=== PATIENT | male | born 1955 | race African-American/Black ===

== ENCOUNTER 2016-12-26 11:52 | Emergency (ER) | payer MEDICARE, OTHER ==
[~2016-12-26] VITALS: Ht 177.8 cm; Wt 68.0 kg
[~2016-12-26 11:52] MED LIST: CEPH500 PO; HYDR-3965 PO; IBUP-2070 PO; IPRA4AER IH; SULF-168 PO
[2016-12-26 13:02] LABS: BASOPHILS % (AUTO) 0.5 % (0.0-2.0); EOSINOPHILS % (AUTO) 0.7 % (1.0-6.0); HEMATOCRIT 43.9 % (41-53); HEMOGLOBIN 14.2 g/dL (13.5-17.5); LYMPHOCYTES # (AUTO) 1.4 K/uL (1.0-4.8); LYMPHOCYTES % (AUTO) 33.2 % (22.0-44.0); MEAN CORPUSCULAR HEMOGLOBIN 28.5 pg (26.0-34.0); MEAN CORPUSCULAR HGB CONC 32.4 G/dL (31.0-37.0); MEAN CORPUSCULAR VOLUME 88 fL (80-100); MONOCYTES # (AUTO) 0.8 K/uL (0.1-1.0); MONOCYTES % (AUTO) 19.7 % (2.0-9.0); NEUTROPHILS % (AUTO) 45.9 % (40.0-70.0); PLATELET COUNT (AUTO) 246 K/uL (150-450); RED BLOOD CELL COUNT(AUTO) 4.99 MIL/uL (4.50-5.90); RED CELL DISTRIBUTION WIDTH 13.9 % (11.5-14.5); WHITE BLOOD COUNT (AUTO) 4.3 K/uL (4.5-11.0)
[2016-12-26 13:10] LABS: ANION GAP 7 mmol/L (8-16); CALCIUM, TOTAL 8.8 mg/dL (8.8-10.5); CARBON DIOXIDE 32 mmol/L (22-29); CHLORIDE 100 mmol/L (98-107); GLOMERULAR FILTR. RATE CALC > 60 mL/min (>60); POTASSIUM 4.5 mmol/L (3.5-5.1); SODIUM SERUM 139 mmol/L (136-145); UREA NITROGEN, BLOOD 15 mg/dL (7-18)
[2016-12-26 13:16] LABS: ALANINE AMINOTRANSFERASE 33 U/L (12-78); ALBUMIN 4.1 g/dL (3.4-5.0); ASPARTATE AMINOTRANSFERASE 47 U/L (15-37); TOTAL PROTEIN, SERUM 8.1 g/dL (6.4-8.2)
[2016-12-26] MEDS ORDERED: SODIUM CHLORIDE 0.9% 1,000 ML IV ONE (15:30)
[2016-12-26] MEDS ORDERED: ONDANSETRON HCL 4 MG/2 ML VIAL IVP ONE (15:30)
[2016-12-26 15:33] LABS: APPEARANCE,URINE CLEAR (CLEAR)
[2016-12-26 15:34] LABS: ADD UA MICROSCOPIC YES; GLUCOSE, URINE (UA) NEGATIVE (NEGATIVE); KETONES,URINE NEGATIVE (NEGATIVE); LEUKOCYTE ESTERASE ,URINE NEGATIVE (NEGATIVE); OCCULT BLOOD,URINE TRACE (NEGATIVE); PH,URINE 6.5 (5.0-8.0); PROTEIN,URINE TRACE (NEGATIVE)
[2016-12-26 16:02] LABS: SQUAMOUS EPITHELIAL CELL,UR Few /LPF (None Seen)
[2016-12-26 16:03] LABS: RBC,URINE 0-2 /HPF (0-2); WBC,URINE 0-2 /HPF (0-5)
[2016-12-26 16:45] VITALS: BP 151/106
== END 2016-12-26 17:29 | disposition home or self-care (01) ==
LOC: EMS 11:55
DX: J44.9 Chronic obstructive pulmonary disease, unspecified (principal); R19.7 Diarrhea, unspecified
CPT/HCPCS: 36415; 80053; 81001; 83690; 85025; 96361; 96374; 99285; J2405; J7030; 99284

== ENCOUNTER 2019-03-27 09:58 | Inpatient (IN) | payer MEDICARE, MEDICAID ==
[~2019-03-27] VITALS: Ht 180.3 cm; Wt 68.5 kg
[~2019-03-27 09:58] MED LIST changes: -CEPH500 PO; -SULF-168 PO
[2019-03-27] MEDS ORDERED: ALBU90AE IH (10:08)
[2019-03-27] MEDS ORDERED: MethylPREDNISolone SOD SUCC 125 MG/2 ML VIAL IVP ONE (10:15)
[2019-03-27] MEDS ORDERED: MAGNESIUM SULFATE 2 GM/WATER 50 ML IV ONE (10:15)
[2019-03-27] MEDS ORDERED: ALBUTEROL SULFATE 2.5 MG/0.5 ML NEB SOLUTION NEB ONE (10:15)
[2019-03-27] MEDS ORDERED: IPRATROPIUM BROMIDE 0.5 MG/2.5 ML NEB SOLUTION NEB ONE ×2 (10:15→11:30)
[2019-03-27 10:29] LABS: BASOPHILS % (AUTO) 0.2 % (0.0-2.0); EOSINOPHILS % (AUTO) 0.6 % (1.0-6.0); HEMATOCRIT 40.8 % (41-53); HEMOGLOBIN 12.9 g/dL (13.5-17.5); LYMPHOCYTES % (AUTO) 8.4 % (22.0-44.0); MEAN CORPUSCULAR HEMOGLOBIN 26.3 pg (26.0-34.0); MEAN CORPUSCULAR HGB CONC 31.7 G/dL (31.0-37.0); MEAN CORPUSCULAR VOLUME 83 fL (80-100); MONOCYTES % (AUTO) 17.3 % (2.0-9.0); NEUTROPHILS # (AUTO) 8.5 K/uL (1.8-7.7); NEUTROPHILS % (AUTO) 73.5 % (40.0-70.0); PLATELET COUNT (AUTO) 285 K/uL (150-450); RED BLOOD CELL COUNT(AUTO) 4.92 MIL/uL (4.50-5.90); RED CELL DISTRIBUTION WIDTH 14.5 % (11.5-14.5)
[2019-03-27 10:41] LABS: ANION GAP 8 mmol/L (8-16); CALCIUM, TOTAL 9.1 mg/dL (8.8-10.5); CARBON DIOXIDE 30 mmol/L (22-29); CHLORIDE 97 mmol/L (98-107); CREATININE 0.96 mg/dL (0.60-1.30); GLOMERULAR FILTR. RATE CALC > 60 mL/min (>60); GLUCOSE,RANDOM 118 mg/dL (70-110); POTASSIUM 4.2 mmol/L (3.5-5.1); SODIUM SERUM 135 mmol/L (136-145); UREA NITROGEN, BLOOD 8 mg/dL (7-18)
[2019-03-27] MEDS ORDERED: LORazepam 2 MG/ML VIAL ONE (10:48)
[2019-03-27 11:00] LABS: ABG BASE EXCESS 2.6 mmol/L (-2.0-3.0); ABG CARBOXYHEMOGLOBIN 1.1 % (0.0-1.5); ABG HCO3 24.5 mmol/L (22.0-26.0); ABG METHEMOGLOBIN 0.3 % (0.0-1.5); ABG OXYGEN CONTENT 18.8 mL/dL (15.0-23.0); ABG OXYGEN SATURATION 98.7 % (95.0-98.0); ABG OXYHEMOGLOBIN 97.3 % (94.0-100.0); ABG PH 7.171 (7.35-7.450); ABG TOTAL HEMOGLOBIN 13.5 G/dL (12.0-18.0); PO2, ARTERIAL BG 173.3 mmHg (79.0-87.0); SOURCE, BLOOD GAS ARTERIAL; TEMPERATURE, FAHRENHEIT, BG 97.3 FAHREN (96.0-98.6)
[2019-03-27] MEDS ORDERED: LORazepam 2 MG/ML VIAL IVP ONE (11:00)
[2019-03-27 11:01] LABS: ABG PCO2 87 mmHg (35-45); O2 DEVICE,BLOOD GAS BIPAP (ROOM AIR); SITE, BLOOD GAS LFT RADIAL
[2019-03-27 11:02] LABS: B-TYPE NATRIURETIC PEPTIDE 45 pg/mL (0-100)
[2019-03-27 11:11] LABS: ALANINE AMINOTRANSFERASE 34 U/L (12-78); ALBUMIN 4.1 g/dL (3.4-5.0); ALKALINE PHOSPHATASE 110 U/L (46-116); ASPARTATE AMINOTRANSFERASE 46 U/L (15-37); BILIRUBIN,TOTAL 1.2 mg/dL (0.1-1.0); CREATINE KINASE, TOTAL ONLY 451 U/L (39-308); TOTAL PROTEIN, SERUM 8.9 g/dL (6.4-8.2)
[2019-03-27] MEDS ORDERED: LEVALBUTEROL HCL 1.25 MG/0.5 ML NEB SOLUTION NEB ONE ×2 (11:30)
[2019-03-27] MEDS ORDERED: ETOMIDATE 2 MG/ML 10 ML VIAL IVP ONE (12:00)
[2019-03-27 12:30] LABS: ABG BASE EXCESS 2.5 mmol/L (-2.0-3.0); ABG CARBOXYHEMOGLOBIN 0.7 % (0.0-1.5); ABG HCO3 23.9 mmol/L (22.0-26.0); ABG METHEMOGLOBIN 0.3 % (0.0-1.5); ABG OXYGEN CONTENT 18.6 mL/dL (15.0-23.0); ABG OXYGEN SATURATION 99.4 % (95.0-98.0); ABG OXYHEMOGLOBIN 98.4 % (94.0-100.0); ABG PCO2 122 mmHg (35-45); ABG PH 7.051 (7.35-7.450); ABG TOTAL HEMOGLOBIN 12.9 G/dL (12.0-18.0); O2 DEVICE,BLOOD GAS BIPAP (ROOM AIR); PO2, ARTERIAL BG 313.5 mmHg (79.0-87.0); SITE, BLOOD GAS RT RADIAL; SOURCE, BLOOD GAS ARTERIAL; TEMPERATURE, FAHRENHEIT, BG 98.6 FAHREN (96.0-98.6)
[2019-03-27] MEDS ORDERED: ETOMIDATE 2 MG/ML 10 ML VIAL ONE (12:34)
[2019-03-27] MEDS ORDERED: PROPOFOL 1000 MG/ISO-OSM 100 ML IV ONE (12:34)
[2019-03-27] MEDS ORDERED: RAPID SEQUENCE KIT [RSI] 1 EACH KIT ONE (12:34)
[2019-03-27] MEDS ORDERED: ROCURONIUM BROMIDE 10 MG/ML 5 ML VIAL ONE (12:35)
[2019-03-27] MEDS ORDERED: PROPOFOL 1000 MG/ISO-OSM 100 ML IV PRN (12:47)
[2019-03-27] MEDS ORDERED: LEVOFLOXACIN 750 MG/D5% WATER 150 ML IV ONE (13:00)
[2019-03-27] MEDS ORDERED: ONDANSETRON HCL 4 MG/2 ML VIAL IVP PRN (13:00)
[2019-03-27] MEDS ORDERED: IPRATROPIUM BROMIDE 0.5 MG/2.5 ML NEB SOLUTION NEB PRN (13:00)
[2019-03-27] MEDS ORDERED: BISACODYL 10 MG RECTAL RECTAL SUPPOSITORY PR PRN (13:00)
[2019-03-27] MEDS ORDERED: ALBUTEROL SULFATE 2.5 MG/0.5 ML NEB SOLUTION NEB PRN (13:00)
[2019-03-27] MEDS ORDERED: MAGNESIUM HYDROXIDE SUSPENSION 30 ML UDCUP PO PRN (13:00)
[2019-03-27] MEDS: HEPARIN SODIUM,PORCINE 5,000 UNITS/ML VIAL SQ SCH ×2 (13:36→21:08)
[2019-03-27] MEDS: SODIUM CHLORIDE 0.9% 1,000 ML IV SCH (13:37)
[2019-03-27] MEDS: ALBUTEROL SULFATE 2.5 MG/0.5 ML NEB SOLUTION NEB SCH ×2 (14:00→19:48)
[2019-03-27] MEDS: IPRATROPIUM BROMIDE 0.5 MG/2.5 ML NEB SOLUTION NEB SCH ×2 (14:00→19:49)
[2019-03-27 14:18] LABS: ABG A-A DIFF O2 120.1 mmHg (10-20.0); ABG BASE EXCESS -4.6 mmol/L (-2.0-3.0); ABG CARBOXYHEMOGLOBIN 0.8 % (0.0-1.5); ABG HCO3 20.8 mmol/L (22.0-26.0); ABG METHEMOGLOBIN 0.2 % (0.0-1.5); ABG OXYGEN CONTENT 17.9 mL/dL (15.0-23.0); ABG OXYGEN SATURATION 99.4 % (95.0-98.0); ABG OXYHEMOGLOBIN 98.4 % (94.0-100.0); ABG PCO2 44 mmHg (35-45); ABG PH 7.308 (7.35-7.450); ABG TOTAL HEMOGLOBIN 12.5 G/dL (12.0-18.0); SOURCE, BLOOD GAS ARTERIAL; TEMPERATURE, FAHRENHEIT, BG 98.6 FAHREN (96.0-98.6)
[2019-03-27 14:19] LABS: O2 DEVICE,BLOOD GAS VENTILATOR (ROOM AIR); PEEP,BG 5 cm H2O; SITE, BLOOD GAS RT RADIAL; VT, ABG 500 ml
[2019-03-27 16:00] VITALS: BP 117/81
[2019-03-27] MEDS: MethylPREDNISolone SOD SUCC 125 MG/2 ML VIAL IVP SCH ×2 (17:48→23:51)
[2019-03-27] MEDS: PROPOFOL 1000 MG/ISO-OSM 100 ML IV PRN ×2 (17:49→23:51)
[2019-03-27 18:00] VITALS: BP 125/89
[2019-03-27] MEDS: ACETAMINOPHEN 325 MG TABLET PO PRN (19:45)
[2019-03-27 20:00] VITALS: BP 119/82
[2019-03-27] MEDS ORDERED: PNEUMOCOCCAL VACCINE POLYVALENT 0.5 ML VIAL [PPSV23] IM ONE (20:45)
[2019-03-27 22:00] VITALS: BP 103/68
[2019-03-28] VITALS (11 sets, daily range): BP systolic 96–123; BP diastolic 62–85
[2019-03-28] MEDS: IPRATROPIUM BROMIDE 0.5 MG/2.5 ML NEB SOLUTION NEB SCH ×4 (01:48→19:31)
[2019-03-28] MEDS: ALBUTEROL SULFATE 2.5 MG/0.5 ML NEB SOLUTION NEB SCH ×4 (01:48→19:31)
[2019-03-28] MEDS: SODIUM CHLORIDE 0.9% 1,000 ML IV SCH ×2 (04:14→17:51)
[2019-03-28] MEDS: PROPOFOL 1000 MG/ISO-OSM 100 ML IV PRN ×4 (04:16→17:51)
[2019-03-28 04:52] LABS: BASOPHILS % (AUTO) 0.1 % (0.0-2.0); EOSINOPHILS % (AUTO) 0 % (1.0-6.0); HEMATOCRIT 34.3 % (41-53); HEMOGLOBIN 10.7 g/dL (13.5-17.5); LYMPHOCYTES # (AUTO) 0.7 K/uL (1.0-4.8); LYMPHOCYTES % (AUTO) 7.2 % (22.0-44.0); MEAN CORPUSCULAR HEMOGLOBIN 26.2 pg (26.0-34.0); MEAN CORPUSCULAR HGB CONC 31.1 G/dL (31.0-37.0); MEAN CORPUSCULAR VOLUME 84 fL (80-100); MONOCYTES # (AUTO) 0.6 K/uL (0.1-1.0); MONOCYTES % (AUTO) 6.8 % (2.0-9.0); NEUTROPHILS # (AUTO) 8.1 K/uL (1.8-7.7); PLATELET COUNT (AUTO) 239 K/uL (150-450); RED BLOOD CELL COUNT(AUTO) 4.08 MIL/uL (4.50-5.90); RED CELL DISTRIBUTION WIDTH 14.3 % (11.5-14.5)
[2019-03-28 05:05] LABS: NEUTROPHILS % (AUTO) 85.9 % (40.0-70.0)
[2019-03-28 05:10] LABS: ALANINE AMINOTRANSFERASE 22 U/L (12-78); ALBUMIN 2.7 g/dL (3.4-5.0); ALKALINE PHOSPHATASE 74 U/L (46-116); ANION GAP 3 mmol/L (8-16); ASPARTATE AMINOTRANSFERASE 29 U/L (15-37); BILIRUBIN,TOTAL 0.7 mg/dL (0.1-1.0); CALCIUM, TOTAL 8.2 mg/dL (8.8-10.5); CARBON DIOXIDE 32 mmol/L (22-29); CHLORIDE 102 mmol/L (98-107); CREATININE 0.89 mg/dL (0.60-1.30); GLOMERULAR FILTR. RATE CALC > 60 mL/min (>60); GLUCOSE,RANDOM 139 mg/dL (70-110); POTASSIUM 4.7 mmol/L (3.5-5.1); SODIUM SERUM 137 mmol/L (136-145); TOTAL PROTEIN, SERUM 6.9 g/dL (6.4-8.2); UREA NITROGEN, BLOOD 12 mg/dL (7-18)
[2019-03-28] MEDS: MethylPREDNISolone SOD SUCC 125 MG/2 ML VIAL IVP SCH ×4 (05:36→23:42)
[2019-03-28] MEDS: ACETAMINOPHEN 325 MG TABLET PO PRN (07:40)
[2019-03-28] MEDS: HEPARIN SODIUM,PORCINE 5,000 UNITS/ML VIAL SQ SCH ×2 (07:41→20:32)
[2019-03-28] MEDS: PANTOPRAZOLE SODIUM 40 MG/VIAL IVP SCH (07:41)
[2019-03-28] MEDS: AZITHROMYCIN 500 MG/NS 250 ML IV SCH (09:15)
[2019-03-28 09:25] LABS: AMPHET/METH SCREEN,URINE POSITIVE (NEGATIVE); BARBITURATE SCREEN, URINE NEGATIVE (NEGATIVE); BENZODIAZEPINES SCREEN,URINE NEGATIVE (NEGATIVE); CANNABINOID SCREEN,URINE POSITIVE (NEGATIVE); COCAINE SCREEN,URINE NEGATIVE (NEGATIVE); METHADONE SCREEN, URINE NEGATIVE (NEGATIVE); OPIATE SCREEN,URINE NEGATIVE (NEGATIVE)
[2019-03-28 09:29] LABS: PHENCYCLIDINE SCREEN,URINE NEGATIVE (NEGATIVE)
[2019-03-28 09:35] LABS: APPEARANCE,URINE CLOUDY (CLEAR); BILIRUBIN,URINE NEGATIVE (NEGATIVE); GLUCOSE, URINE (UA) NEGATIVE (NEGATIVE); KETONES,URINE 15 mg/dL (NEGATIVE); LEUKOCYTE ESTERASE ,URINE NEGATIVE (NEGATIVE); NITRATE,URINE NEGATIVE (NEGATIVE); OCCULT BLOOD,URINE SMALL (NEGATIVE); PROTEIN,URINE NEGATIVE (NEGATIVE)
[2019-03-28 10:07] LABS: BACTERIA,URINE None Seen /HPF (None Seen); RBC,URINE 0-2 /HPF (0-2); SQUAMOUS EPITHELIAL CELL,UR Few /LPF (None Seen); URIC ACID CRYSTALS,URINE Few /LPF (None Seen); WBC,URINE None Seen /HPF (0-5)
[2019-03-28] MEDS: FentaNYL CITRATE PF 500 MCG in DEXTROSE 5%-WATER 90 ML IV PRN ×2 (10:58→19:00)
[2019-03-28 14:46] LABS: ABG A-A DIFF O2 115.4 mmHg (10-20.0); ABG BASE EXCESS 2.8 mmol/L (-2.0-3.0); ABG CARBOXYHEMOGLOBIN 0.1 % (0.0-1.5); ABG HCO3 26.5 mmol/L (22.0-26.0); ABG METHEMOGLOBIN 0.3 % (0.0-1.5); ABG OXYGEN CONTENT 15.6 mL/dL (15.0-23.0); ABG OXYGEN SATURATION 98.3 % (95.0-98.0); ABG OXYHEMOGLOBIN 97.9 % (94.0-100.0); ABG PCO2 48 mmHg (35-45); ABG PH 7.383 (7.35-7.450); ABG TOTAL HEMOGLOBIN 11.2 G/dL (12.0-18.0); O2 DEVICE,BLOOD GAS VENTILATOR (ROOM AIR); PEEP,BG 5 cm H2O; SITE, BLOOD GAS RT RADIAL; SOURCE, BLOOD GAS ARTERIAL; TEMPERATURE, FAHRENHEIT, BG 98.3 FAHREN (96.0-98.6); VT, ABG 500 ml
[2019-03-29] VITALS (10 sets, daily range): BP systolic 98–124; BP diastolic 68–82
[2019-03-29] MEDS: PROPOFOL 1000 MG/ISO-OSM 100 ML IV PRN ×4 (00:35→16:50)
[2019-03-29] MEDS: IPRATROPIUM BROMIDE 0.5 MG/2.5 ML NEB SOLUTION NEB SCH ×4 (02:33→19:31)
[2019-03-29] MEDS: ALBUTEROL SULFATE 2.5 MG/0.5 ML NEB SOLUTION NEB SCH ×4 (02:33→19:30)
[2019-03-29 05:00] LABS: BASOPHILS % (AUTO) 0.3 % (0.0-2.0); EOSINOPHILS % (AUTO) 0 % (1.0-6.0); HEMATOCRIT 31.5 % (41-53); HEMOGLOBIN 9.9 g/dL (13.5-17.5); LYMPHOCYTES # (AUTO) 0.5 K/uL (1.0-4.8); LYMPHOCYTES % (AUTO) 4.1 % (22.0-44.0); MEAN CORPUSCULAR HEMOGLOBIN 26.4 pg (26.0-34.0); MEAN CORPUSCULAR HGB CONC 31.5 G/dL (31.0-37.0); MEAN CORPUSCULAR VOLUME 84 fL (80-100); MONOCYTES # (AUTO) 0.9 K/uL (0.1-1.0); MONOCYTES % (AUTO) 8.2 % (2.0-9.0); NEUTROPHILS # (AUTO) 10.1 K/uL (1.8-7.7); PLATELET COUNT (AUTO) 248 K/uL (150-450); RED BLOOD CELL COUNT(AUTO) 3.76 MIL/uL (4.50-5.90); RED CELL DISTRIBUTION WIDTH 14.4 % (11.5-14.5)
[2019-03-29] MEDS: FentaNYL CITRATE PF 500 MCG in DEXTROSE 5%-WATER 90 ML IV PRN ×2 (05:01→17:23)
[2019-03-29] MEDS: MethylPREDNISolone SOD SUCC 125 MG/2 ML VIAL IVP SCH ×3 (05:17→17:32)
[2019-03-29 05:21] LABS: NEUTROPHILS % (AUTO) 87.4 % (40.0-70.0)
[2019-03-29 05:26] LABS: ALANINE AMINOTRANSFERASE 20 U/L (12-78); ALBUMIN 2.2 g/dL (3.4-5.0); ALKALINE PHOSPHATASE 56 U/L (46-116); ANION GAP 7 mmol/L (8-16); ASPARTATE AMINOTRANSFERASE 31 U/L (15-37); BILIRUBIN,TOTAL 0.4 mg/dL (0.1-1.0); CALCIUM, TOTAL 7.9 mg/dL (8.8-10.5); CARBON DIOXIDE 29 mmol/L (22-29); CHLORIDE 103 mmol/L (98-107); GLOMERULAR FILTR. RATE CALC > 60 mL/min (>60); GLUCOSE,RANDOM 143 mg/dL (70-110); PHOSPHORUS 2.8 mg/dL (2.5-4.9); POTASSIUM 4.7 mmol/L (3.5-5.1); SODIUM SERUM 139 mmol/L (136-145); TOTAL PROTEIN, SERUM 5.9 g/dL (6.4-8.2)
[2019-03-29 05:36] LABS: UREA NITROGEN, BLOOD 18 mg/dL (7-18)
[2019-03-29] MEDS: SODIUM CHLORIDE 0.9% 1,000 ML IV SCH ×2 (08:03→22:00)
[2019-03-29] MEDS: HEPARIN SODIUM,PORCINE 5,000 UNITS/ML VIAL SQ SCH ×2 (08:13→20:43)
[2019-03-29] MEDS: PANTOPRAZOLE SODIUM 40 MG/VIAL IVP SCH (08:13)
[2019-03-29] MEDS: AZITHROMYCIN 500 MG/NS 250 ML IV SCH (08:14)
[2019-03-29] MEDS: HALOPERIDOL LACTATE 5 MG/ML VIAL IVP PRN ×2 (09:31→23:57)
[2019-03-29] MEDS ORDERED: HALOPERIDOL LACTATE 5 MG/ML VIAL IVP ONE (11:30)
[2019-03-29] MEDS ORDERED: SODIUM CHLORIDE 0.9% 250 ML IV ONE (19:17)
[2019-03-30] VITALS (7 sets, daily range): BP systolic 97–126; BP diastolic 66–78
[2019-03-30] MEDS: MethylPREDNISolone SOD SUCC 125 MG/2 ML VIAL IVP SCH ×4 (00:03→18:28)
[2019-03-30] MEDS: PROPOFOL 1000 MG/ISO-OSM 100 ML IV PRN ×5 (00:11→22:37)
[2019-03-30] MEDS: IPRATROPIUM BROMIDE 0.5 MG/2.5 ML NEB SOLUTION NEB SCH ×4 (01:25→20:15)
[2019-03-30] MEDS: ALBUTEROL SULFATE 2.5 MG/0.5 ML NEB SOLUTION NEB SCH ×4 (01:26→20:15)
[2019-03-30] MEDS: FentaNYL CITRATE PF 500 MCG in DEXTROSE 5%-WATER 90 ML IV PRN ×2 (05:39→18:17)
[2019-03-30] MEDS: HALOPERIDOL LACTATE 5 MG/ML VIAL IVP PRN ×2 (06:06→13:31)
[2019-03-30] MEDS: AZITHROMYCIN 500 MG/NS 250 ML IV SCH (08:38)
[2019-03-30] MEDS: HEPARIN SODIUM,PORCINE 5,000 UNITS/ML VIAL SQ SCH ×2 (08:39→21:22)
[2019-03-30] MEDS: PANTOPRAZOLE SODIUM 40 MG/VIAL IVP SCH (09:23)
[2019-03-30 13:06] LABS: LEGIONELLA PNEUMO AG URINE Negative (Negative); ORGANISM ID Not indicated.; S PNEUMO SOURCE Urine; STREP PNEUMONIAE AG URINE Negative (Negative); STREP.PNEUMO BODY FLUID CULT. Not Indicated
[2019-03-30] MEDS: SODIUM CHLORIDE 0.9% 1,000 ML IV SCH (13:29)
[2019-03-31] VITALS (8 sets, daily range): BP systolic 112–125; BP diastolic 72–85
[2019-03-31] MEDS: MethylPREDNISolone SOD SUCC 125 MG/2 ML VIAL IVP SCH ×5 (00:03→23:38)
[2019-03-31] MEDS: SODIUM CHLORIDE 0.9% 1,000 ML IV SCH (01:31)
[2019-03-31] MEDS: IPRATROPIUM BROMIDE 0.5 MG/2.5 ML NEB SOLUTION NEB SCH ×4 (02:06→20:11)
[2019-03-31] MEDS: ALBUTEROL SULFATE 2.5 MG/0.5 ML NEB SOLUTION NEB SCH ×4 (02:06→20:11)
[2019-03-31] MEDS: PROPOFOL 1000 MG/ISO-OSM 100 ML IV PRN ×4 (02:55→22:27)
[2019-03-31] MEDS: FentaNYL CITRATE PF 500 MCG in DEXTROSE 5%-WATER 90 ML IV PRN ×2 (02:55→14:35)
[2019-03-31] MEDS: HEPARIN SODIUM,PORCINE 5,000 UNITS/ML VIAL SQ SCH ×2 (08:25→20:14)
[2019-03-31] MEDS: AZITHROMYCIN 500 MG/NS 250 ML IV SCH (08:28)
[2019-03-31] MEDS: PANTOPRAZOLE SODIUM 40 MG/VIAL IVP SCH (08:31)
[2019-03-31] MEDS: HALOPERIDOL LACTATE 5 MG/ML VIAL IVP PRN ×2 (11:00→20:27)
[2019-04-01] VITALS: BP 118/78
[2019-04-01] MEDS: DOCUSATE SODIUM 100 MG CAPSULE PO PRN (01:23)
[2019-04-01] MEDS ORDERED: SODIUM CHLORIDE 0.9% 250 ML IV ONE ×2 (01:27→23:51)
[2019-04-01] MEDS: PROPOFOL 1000 MG/ISO-OSM 100 ML IV PRN ×2 (02:09→06:38)
[2019-04-01] MEDS: IPRATROPIUM BROMIDE 0.5 MG/2.5 ML NEB SOLUTION NEB SCH ×4 (02:14→19:38)
[2019-04-01] MEDS: FentaNYL CITRATE PF 500 MCG in DEXTROSE 5%-WATER 90 ML IV PRN (02:14)
[2019-04-01] MEDS: ALBUTEROL SULFATE 2.5 MG/0.5 ML NEB SOLUTION NEB SCH ×4 (02:14→19:38)
[2019-04-01 04:00] VITALS: BP 91/67
[2019-04-01 04:43] LABS: BASOPHILS % (AUTO) 0.1 % (0.0-2.0); EOSINOPHILS % (AUTO) 0 % (1.0-6.0); HEMATOCRIT 34.2 % (41-53); HEMOGLOBIN 10.8 g/dL (13.5-17.5); LYMPHOCYTES # (AUTO) 0.7 K/uL (1.0-4.8); LYMPHOCYTES % (AUTO) 12.1 % (22.0-44.0); MEAN CORPUSCULAR HEMOGLOBIN 26.4 pg (26.0-34.0); MEAN CORPUSCULAR HGB CONC 31.5 G/dL (31.0-37.0); MEAN CORPUSCULAR VOLUME 84 fL (80-100); MONOCYTES # (AUTO) 1.2 K/uL (0.1-1.0); NEUTROPHILS # (AUTO) 4.2 K/uL (1.8-7.7); NEUTROPHILS % (AUTO) 68.8 % (40.0-70.0); PLATELET COUNT (AUTO) 233 K/uL (150-450); RED BLOOD CELL COUNT(AUTO) 4.08 MIL/uL (4.50-5.90); RED CELL DISTRIBUTION WIDTH 14.2 % (11.5-14.5)
[2019-04-01 04:56] LABS: ANION GAP 2 mmol/L (8-16); CALCIUM, TOTAL 8.3 mg/dL (8.8-10.5); CARBON DIOXIDE 32 mmol/L (22-29); CHLORIDE 104 mmol/L (98-107); GLOMERULAR FILTR. RATE CALC > 60 mL/min (>60); GLUCOSE,RANDOM 204 mg/dL (70-110); PHOSPHORUS 3.5 mg/dL (2.5-4.9); POTASSIUM 4.6 mmol/L (3.5-5.1); SODIUM SERUM 138 mmol/L (136-145); UREA NITROGEN, BLOOD 22 mg/dL (7-18)
[2019-04-01] MEDS: MethylPREDNISolone SOD SUCC 125 MG/2 ML VIAL IVP SCH ×4 (05:38→23:57)
[2019-04-01] MEDS: HALOPERIDOL LACTATE 5 MG/ML VIAL IVP PRN ×2 (07:55→15:45)
[2019-04-01 08:00] VITALS: BP 111/67
[2019-04-01] MEDS: AZITHROMYCIN 500 MG/NS 250 ML IV SCH (08:53)
[2019-04-01] MEDS: PANTOPRAZOLE SODIUM 40 MG/VIAL IVP SCH (08:53)
[2019-04-01] MEDS: HEPARIN SODIUM,PORCINE 5,000 UNITS/ML VIAL SQ SCH ×2 (08:53→21:02)
[2019-04-01] MEDS ORDERED: HALOPERIDOL LACTATE 5 MG/ML VIAL IVP ONE (10:45)
[2019-04-01 11:33] LABS: ABG A-A DIFF O2 116.1 mmHg (10-20.0); ABG BASE EXCESS 4.4 mmol/L (-2.0-3.0); ABG CARBOXYHEMOGLOBIN 0.3 % (0.0-1.5); ABG HCO3 27.4 mmol/L (22.0-26.0); ABG METHEMOGLOBIN 0.3 % (0.0-1.5); ABG OXYGEN CONTENT 15.8 mL/dL (15.0-23.0); ABG OXYGEN SATURATION 92.9 % (95.0-98.0); ABG OXYHEMOGLOBIN 92.3 % (94.0-100.0); ABG PCO2 52 mmHg (35-45); ABG PH 7.372 (7.35-7.450); ABG TOTAL HEMOGLOBIN 12.1 G/dL (12.0-18.0); PO2, ARTERIAL BG 72.9 mmHg (79.0-87.0); SOURCE, BLOOD GAS ARTERIAL; TEMPERATURE, FAHRENHEIT, BG 98.3 FAHREN (96.0-98.6)
[2019-04-01 11:34] LABS: O2 DEVICE,BLOOD GAS VENTILATOR (ROOM AIR); PEEP,BG 0 cm H2O; PRESSURE SUPPORT, BG 8 cm H2O; SITE, BLOOD GAS RT RADIAL; SPONTANEOUS VT, BG 480 ml; VENT MODE, BG SPONTANEOUS (ROOM AIR)
[2019-04-01 12:00] VITALS: BP 132/80
[2019-04-01 16:00] VITALS: BP 140/95
[2019-04-01 20:00] VITALS: BP 155/93
[2019-04-01] MEDS: FAMOTIDINE 20 MG TABLET PO SCH (21:00)
[2019-04-02] VITALS: BP 160/115
[2019-04-02] MEDS: ALBUTEROL SULFATE 2.5 MG/0.5 ML NEB SOLUTION NEB SCH ×3 (01:44→20:01)
[2019-04-02] MEDS: IPRATROPIUM BROMIDE 0.5 MG/2.5 ML NEB SOLUTION NEB SCH ×3 (01:44→20:01)
[2019-04-02] MEDS: HALOPERIDOL LACTATE 5 MG/ML VIAL IVP PRN (01:58)
[2019-04-02 04:00] VITALS: BP 159/101
[2019-04-02] MEDS: MethylPREDNISolone SOD SUCC 125 MG/2 ML VIAL IVP SCH ×3 (06:16→20:57)
[2019-04-02] MEDS: HEPARIN SODIUM,PORCINE 5,000 UNITS/ML VIAL SQ SCH ×2 (09:00→20:56)
[2019-04-02] MEDS: FAMOTIDINE 20 MG TABLET PO SCH ×2 (09:00→20:56)
[2019-04-02 09:16] VITALS: BP 162/97
[2019-04-02] MEDS ORDERED: HydrALAZINE HCL 20 MG/ML VIAL IVP PRN (13:45)
[2019-04-02 14:12] VITALS: BP 162/98
[2019-04-02] MEDS: AmLODIPine BESYLATE 10 MG TABLET PO SCH (14:23)
[2019-04-02] MEDS ORDERED: SODIUM CHLORIDE 0.9% 1,000 ML IV ONE (15:22)
[2019-04-02] MEDS: AZITHROMYCIN 500 MG/NS 250 ML IV SCH (15:30)
[2019-04-02] MEDS ORDERED: HydrALAZINE HCL 20 MG/ML VIAL IVP SCH (18:00)
[2019-04-02 20:04] VITALS: BP 152/96
[2019-04-03] VITALS (7 sets, daily range): BP systolic 115–156; BP diastolic 74–96
[2019-04-03] MEDS: IPRATROPIUM BROMIDE 0.5 MG/2.5 ML NEB SOLUTION NEB SCH ×5 (02:00→19:57)
[2019-04-03] MEDS: ALBUTEROL SULFATE 2.5 MG/0.5 ML NEB SOLUTION NEB SCH ×5 (02:00→19:57)
[2019-04-03] MEDS: MethylPREDNISolone SOD SUCC 125 MG/2 ML VIAL IVP SCH ×4 (02:40→19:05)
[2019-04-03] MEDS: FAMOTIDINE 20 MG TABLET PO SCH ×2 (09:26→21:57)
[2019-04-03] MEDS: HEPARIN SODIUM,PORCINE 5,000 UNITS/ML VIAL SQ SCH ×2 (09:26→21:57)
[2019-04-03] MEDS: AmLODIPine BESYLATE 10 MG TABLET PO SCH (09:26)
[2019-04-03 12:28] LABS: ALANINE AMINOTRANSFERASE 45 U/L (12-78); ALBUMIN 2.7 g/dL (3.4-5.0); ALKALINE PHOSPHATASE 49 U/L (46-116); ANION GAP 7 mmol/L (8-16); ASPARTATE AMINOTRANSFERASE 31 U/L (15-37); BILIRUBIN,TOTAL 0.5 mg/dL (0.1-1.0); CALCIUM, TOTAL 8.3 mg/dL (8.8-10.5); CARBON DIOXIDE 32 mmol/L (22-29); CHLORIDE 98 mmol/L (98-107); CREATININE 0.68 mg/dL (0.60-1.30); GLOMERULAR FILTR. RATE CALC > 60 mL/min (>60); GLUCOSE,RANDOM 159 mg/dL (70-110); POTASSIUM 4.2 mmol/L (3.5-5.1); SODIUM SERUM 137 mmol/L (136-145); TOTAL PROTEIN, SERUM 6.5 g/dL (6.4-8.2); UREA NITROGEN, BLOOD 22 mg/dL (7-18)
[2019-04-03] MEDS ORDERED: SODIUM CHLORIDE 0.9% 100 ML ONE (15:21)
[2019-04-03] MEDS: AZITHROMYCIN 500 MG/NS 250 ML IV SCH (15:24)
[2019-04-04] MEDS: IPRATROPIUM BROMIDE 0.5 MG/2.5 ML NEB SOLUTION NEB SCH ×2 (02:00→09:38)
[2019-04-04] MEDS: ALBUTEROL SULFATE 2.5 MG/0.5 ML NEB SOLUTION NEB SCH ×2 (02:00→09:38)
[2019-04-04] MEDS: MethylPREDNISolone SOD SUCC 125 MG/2 ML VIAL IVP SCH ×2 (05:00→06:10)
[2019-04-04 05:05] VITALS: BP 125/87
[2019-04-04 07:07] VITALS: BP 137/77
[2019-04-04] MEDS: AZITHROMYCIN 500 MG/NS 250 ML IV SCH (08:00)
[2019-04-04] MEDS: AmLODIPine BESYLATE 10 MG TABLET PO SCH (08:00)
[2019-04-04] MEDS: FAMOTIDINE 20 MG TABLET PO SCH (08:00)
[2019-04-04] MEDS: DOCUSATE SODIUM 100 MG CAPSULE PO PRN (08:01)
[2019-04-04 10:52] VITALS: BP 125/77
[2019-04-04 11:21] LABS: GLUCOMETER DEV NAME(LOC) 5N.1; GLUCOSE,POINT OF CARE 235 MG/DL (70-110)
[2019-04-04 11:22] LABS: GLUCOMETER DEV NAME(LOC) 5N.1; GLUCOSE,POINT OF CARE 165 MG/DL (70-110)
[2019-04-04] MEDS ORDERED: LEVO750T21 PO (11:23)
[2019-04-04] MEDS ORDERED: PRED20 PO (11:25)
[2019-04-04] MEDS ORDERED: OMEP20 PO (11:29)
== END 2019-04-04 11:41 | disposition left against medical advice (07) | DRG 870 ==
LOC: EMS 10:01 → ICU 14:25 → UNDODISIN 04-02 08:22 → 5S 04-02 12:01
PROVIDERS: ADMIT Internal Medicine; ATTEND Internal Medicine
PROC: 0BH17EZ Insertion of Endotracheal Airway into Trachea, Via Natural or Artificial Opening (ICD-10-PCS; principal; 2019-03-27)
PROC: 5A1955Z Respiratory Ventilation, Greater than 96 Consecutive Hours (ICD-10-PCS; 2019-03-27)
PROC: 5A09357 Assistance with Respiratory Ventilation, Less than 24 Consecutive Hours, Continuous Positive Airway Pressure (ICD-10-PCS; 2019-03-27)
PROC: 05HY33Z Insertion of Infusion Device into Upper Vein, Percutaneous Approach (ICD-10-PCS; 2019-03-29)
PROC: B54MZZA Ultrasonography of Right Upper Extremity Veins, Guidance (ICD-10-PCS; 2019-03-29)
DX: A41.9 Sepsis, unspecified organism (principal); J96.21 Acute and chronic respiratory failure with hypoxia; E43 Unspecified severe protein-calorie malnutrition; J96.22 Acute and chronic respiratory failure with hypercapnia; J44.1 Chronic obstructive pulmonary disease with (acute) exacerbation; J20.9 Acute bronchitis, unspecified; D63.8 Anemia in other chronic diseases classified elsewhere; Z53.21 Procedure and treatment not carried out due to patient leaving prior to being seen by health care provider; D64.9 Anemia, unspecified; F17.200 Nicotine dependence, unspecified, uncomplicated; G89.29 Other chronic pain; Z91.19 Patient's noncompliance with other medical treatment and regimen; Z68.21 Body mass index [BMI] 21.0-21.9, adult
CPT/HCPCS: 31500; 36245; 36569; 36600; 76937; 80307; 82805; 83735; 84100; 84145; 86738; 87070; 87081; 87205; 87449; 87899; 92610; 93005; 93306; 93970; 94002; 94003; 94640; 94644; 94645; 94660; 96365; 96366; 96375; 99291; C9113; G0378; J0456; J1630; J1644; J1956; J2060; J2704; J2930; J3010; J3475; J3490; J7030; J7050; J7060

== ENCOUNTER 2022-10-17 14:45 | Inpatient (IN) | payer MEDICARE, MEDICAID ==
[~2022-10-17] VITALS: Ht 180.3 cm; Wt 50.0 kg
[~2022-10-17 14:45] MED LIST changes: +ALBU90AE IH; +APIX5TAB PO; +ASPI81 PO; +FOLI-130 PO; -HYDR-3965 PO; -IBUP-2070 PO; +METO25 PO; +PRED-554 PO; +THIA100T80 PO
[2022-10-17 15:42] LABS: BASOPHILS % (AUTO) 0.7 % (0.0-2.0); HEMATOCRIT 27.8 % (41-53); HEMOGLOBIN 8.7 g/dL (13.5-17.5); LYMPHOCYTES # (AUTO) 1.1 K/uL (1.0-4.8); LYMPHOCYTES % (AUTO) 13.9 % (22.0-44.0); MEAN CORPUSCULAR HEMOGLOBIN 26.3 pg (26.0-34.0); MEAN CORPUSCULAR HGB CONC 31.4 G/dL (31.0-37.0); MEAN CORPUSCULAR VOLUME 84 fL (80-100); MONOCYTES # (AUTO) 1.4 K/uL (0.1-1.0); MONOCYTES % (AUTO) 18.4 % (2.0-9.0); PLATELET COUNT (AUTO) 196 K/uL (150-450); RED BLOOD CELL COUNT(AUTO) 3.32 MIL/uL (4.50-5.90); RED CELL DISTRIBUTION WIDTH 16.8 % (11.5-14.5)
[2022-10-17 15:57] LABS: ANION GAP 9 mmol/L (8-16); CARBON DIOXIDE 32 mmol/L (22-29); CHLORIDE 98 mmol/L (98-107); CREATININE 0.56 mg/dL (0.60-1.30); GLUCOSE,RANDOM 81 mg/dL (70-110); SODIUM SERUM 139 mmol/L (136-145); UREA NITROGEN, BLOOD 12 mg/dL (7-18)
[2022-10-17 15:58] LABS: GLOMERULAR FILTR. RATE CALC > 60 mL/min (>60)
[2022-10-17 16:02] LABS: ALANINE AMINOTRANSFERASE 34 U/L (12-78); ALBUMIN 4.1 g/dL (3.4-5.0); ALKALINE PHOSPHATASE 69 U/L (46-116); ASPARTATE AMINOTRANSFERASE 34 U/L (15-37); BILIRUBIN,TOTAL 0.6 mg/dL (0.1-1.0); CREATINE KINASE, TOTAL ONLY 42 U/L (39-308)
[2022-10-17 16:10] LABS: B-TYPE NATRIURETIC PEPTIDE 101 pg/mL (0-100)
[2022-10-17] MEDS ORDERED: ALBUTEROL SULFATE/IPRATROPIUM 100-20 MCG/SPRAY 4 GM INHALER IH ONE (16:30)
[2022-10-17] MEDS ORDERED: ONDANSETRON HCL 4 MG/2 ML VIAL IVP PRN (20:15)
[2022-10-17] MEDS: FUROSEMIDE 20 MG/2 ML VIAL IVP SCH ×2 (20:41→21:00)
[2022-10-17] MEDS: METOPROLOL TARTRATE 25 MG TABLET PO SCH (20:42)
[2022-10-17] MEDS: ACETAMINOPHEN 325 MG TABLET PO PRN (20:42)
[2022-10-17] MEDS: APIXABAN 5 MG TABLET PO SCH (20:42)
[2022-10-17 21:41] LABS: % IRON SATURATION 9.6 % (30-44)
[2022-10-18] MEDS: MORPHINE SULFATE 4 MG/ML SYRINGE IVP PRN ×3 (03:05→11:36)
[2022-10-18 06:06] LABS: COVID AG,FIA SOURCE NASOPHARYNGEAL
[2022-10-18] MEDS: THIAMINE 100 MG TABLET PO SCH (08:50)
[2022-10-18] MEDS: APIXABAN 5 MG TABLET PO SCH ×2 (08:50→20:46)
[2022-10-18] MEDS: METOPROLOL TARTRATE 25 MG TABLET PO SCH ×4 (08:50→21:00)
[2022-10-18] MEDS: FOLIC ACID 1 MG TABLET PO SCH (08:50)
[2022-10-18] MEDS: ASPIRIN 81 MG CHEWABLE TABLET PO SCH (08:50)
[2022-10-18] MEDS: PredniSONE 20 MG TABLET PO SCH (08:51)
[2022-10-18] MEDS: FUROSEMIDE 20 MG/2 ML VIAL IVP SCH ×3 (08:51→21:00)
[2022-10-18] MEDS ORDERED: SODIUM CHLORIDE 0.9% 500 ML IV ONE (12:15)
[2022-10-18] MEDS: ACETAMINOPHEN 325 MG TABLET PO PRN ×2 (15:30→20:02)
[2022-10-19] MEDS: ACETAMINOPHEN 325 MG TABLET PO PRN ×2 (01:39→06:11)
[2022-10-19] MEDS: ASPIRIN 81 MG CHEWABLE TABLET PO SCH (08:14)
[2022-10-19] MEDS: FOLIC ACID 1 MG TABLET PO SCH (08:15)
[2022-10-19] MEDS: METOPROLOL TARTRATE 25 MG TABLET PO SCH (08:15)
[2022-10-19] MEDS: APIXABAN 5 MG TABLET PO SCH (08:15)
[2022-10-19] MEDS: PredniSONE 20 MG TABLET PO SCH (08:15)
[2022-10-19] MEDS: FUROSEMIDE 20 MG/2 ML VIAL IVP SCH (08:15)
[2022-10-19] MEDS: THIAMINE 100 MG TABLET PO SCH (08:15)
[2022-10-19 11:13] VITALS: BP 126/78
== END 2022-10-19 12:24 | disposition home or self-care (01) | DRG 291 ==
LOC: EMS 14:45 → AHU 22:20
PROVIDERS: ADMIT Internal Medicine; ATTEND Internal Medicine
DX: I11.0 Hypertensive heart disease with heart failure (principal); I50.43 Acute on chronic combined systolic (congestive) and diastolic (congestive) heart failure; J96.21 Acute and chronic respiratory failure with hypoxia; E87.3 Alkalosis; B85.2 Pediculosis, unspecified; D50.9 Iron deficiency anemia, unspecified; J44.9 Chronic obstructive pulmonary disease, unspecified; G89.29 Other chronic pain; M54.9 Dorsalgia, unspecified; Z20.822 Contact with and (suspected) exposure to COVID-19; Z79.899 Other long term (current) drug therapy; I25.2 Old myocardial infarction; Z91.199 Patient's noncompliance with other medical treatment and regimen due to unspecified reason; Z87.891 Personal history of nicotine dependence; Z79.01 Long term (current) use of anticoagulants; Z59.01 Sheltered homelessness; Z59.00 Homelessness unspecified
CPT/HCPCS: 71045; 80053; 82550; 83540; 83550; 83880; 84484; 85025; 85045; 93005; 99285; G0378; J1940; J2270; 36415-L1; 36415-TC